=== PATIENT | male | born 1950 | race Two or more races ===

== ENCOUNTER 2018-12-18 09:12 | Outpatient (CLI) | payer OTHER ==
[~2018-12-18 09:12] MED LIST: DIOVAN160 M1
== END 2018-12-18 17:00 | disposition home or self-care (01) ==
LOC: RAD 09:12
DX: J16.8 Pneumonia due to other specified infectious organisms (principal)

== ENCOUNTER 2020-02-02 10:24 | Outpatient (CLI) | payer OTHER | END 2020-02-02 10:26 | disposition home or self-care (01) | LOC: SONOGRAMA 10:24 | DX: M25.511 Pain in right shoulder (principal) ==